=== PATIENT | female | born 1950 | race Caucasian/White ===

== ENCOUNTER 2023-01-02 16:23 | Emergency (ER) | payer MEDICARE, MEDICAID ==
[2023-01-02] MEDS ORDERED: HYDROcodone/Acetaminophen 5/325 mg Tablet ONE (17:14)
[2023-01-02] MEDS ORDERED: Ondansetron ODT 4 MG TAB ONE (17:32)
== END 2023-01-02 18:37 | disposition home or self-care (01) ==
LOC: CSHERS 16:23
DX: S09.90XA Unspecified injury of head, initial encounter (principal); M54.2 Cervicalgia; M25.551 Pain in right hip; M25.561 Pain in right knee; E11.9 Type 2 diabetes mellitus without complications; I10 Essential (primary) hypertension; J44.9 Chronic obstructive pulmonary disease, unspecified; W22.8XXA Striking against or struck by other objects, initial encounter
CPT/HCPCS: 70450; 72125; Q0162